=== PATIENT | male | born 1995 | race Caucasian/White ===

== ENCOUNTER 2017-08-06 02:22 | Emergency (ER) | payer OTHER ==
[2017-08-06] MEDS ORDERED: HYDROCODONE/APAP 5/325 TAB ONE (03:09)
[2017-08-06] MEDS ORDERED: HYDROCODONE/APAP 5/325 TAB PO ONE (03:10)
--- NOTE | 2017-08-06 03:18 | EDPHY ---
H & P Stated Complaint: Hemorrhoids Time Seen by Provider: 08/06/17 02:38 HPI/ROS: Chief Complaint: Rectal pain, hemorrhoids HPI: 22-year-old male with a history of hemorrhoids presenting with worsening rectal pain over the last 2 days. He states that he has been having hemorrhoids for several years. Does often have constipation strange when he has a bowel movement. He has never seen a physician for these. He has been using more preparation H last couple of days without any significant relief. No fevers or chills. No nausea or diarrhea. No bleeding. My ROS PMH: Denies Social History: No smoking, no alcohol, no recreational drug use Family History: non-contributory Physical Exam: Gen: Awake, Alert, No Distress HEENT: Nose: no rhinorrhea Eyes: PERRLA, EOMI Mouth: Moist mucosa Neck: Supple, no JVD Chest: nontender, lungs clear to auscultation Heart: S1, S2 normal, no murmur Abd: Soft, non-tender, no guarding Rectal: He has got several external hemorrhoids. In the posterior portion there is swelling which is tense and tender consistent with a thrombosed external hemorrhoid. Back: no CVA tenderness, no midline tenderness Ext: no edema, non-tender Skin: no rash Neuro: CN II-XII intact, Sensation grossly intact, Strength 5/5 in bilateral upper and lower extremities - Personal History Current Tetanus Diphtheria and Acellular Pertussis (TDAP): Yes - Medical/Surgical History Hx Asthma: Yes Hx Chronic Respiratory Disease: No Hx Diabetes: No Hx Cardiac Disease: No Hx Renal Disease: No Hx Cirrhosis: No Hx Alcoholism: No Hx HIV/AIDS: No Hx Splenectomy or Spleen Trauma: No Other PMH: Asthma, cyst removed, 5th metacarpal fixed - Social History Smoking Status: Light smoker Constitutional: Initial Vital Signs Temperature (C) 36.5 C 08/06/17 02:24 Heart Rate 58 L 08/06/17 02:24 Respiratory Rate 18 08/06/17 02:24 Blood Pressure 103/84 H 08/06/17 02:24 O2 Sat (%) 98 08/06/17 02:24 O2 Delivery Mode Room Air Allergies/Adverse Reactions: No Known Allergies Allergy (Verified 08/06/17 02:23) Home Medications: Medication Instructions Recorded Albuterol Inhaler Hfa 05/31/14 Montelukast Sodium [Singulair] 05/31/14 oxyCODONE/APAP 5/325 [Percocet 1 - 2 tab PO Q4H PRN #20 tab 05/31/14 5/325 (RX)] Medical Decision Making Procedures: Procedure: Abscess drainage. The patient's abscess was located on the perirectal area. I obtained verbal consent from the patient to drain the abscess who was informed about the possibility of bleeding and pain. The abscess was incised with 11 blade and a moderate amount of purulent drainage was expressed. I irrigated the wound and placed some packing. The patient tolerated the procedure well. The procedure was performed by myself. ED Course/Re-evaluation: 22-year-old with initial presentation consistent with thrombosed external hemorrhoid. In preparation for drainage it was noted to have purulent discharge expressed. Patient was then prepped and anesthetized and treated with an I and D. On exploration the abscess was not deep. Did not have a large perirectal masses. Patient was given follow-up instructions. He she continue with Sitz baths daily, follow up with primary care. - Data Points Medications Given: Discontinued Medications Hydrocodone Bitart/Acetaminophen ([place] 5/325) 2 tab PO EDNOW ONE Stop: 08/06/17 03:11 Last Admin: 08/06/17 03:11 Dose: 2 tab Departure - Departure Disposition: Home, Routine, Self-Care Clinical Impression: Perirectal abscess Condition: Good Instructions: Abscess Incision and Drainage (DC), Sitz Bath (DC), Constipation (ED) Additional Instructions: You may remove the gauze packing in about 12 hr. Soak in warm soaks sea water 3 times a day. Alternate acetaminophen (1000 mg) with ibuprofen (400 mg) every 4 hours as needed for pain. Follow up with primary care physician in 2-3 days for recheck. Return to the emergency depart for increasing pain, increasing swelling, fevers or chills, or any other concerns. Referrals: Ozzy Sanchez MD [Medical Doctor] - As per Instructions
[2017-08-06 03:45] VITALS: BP 101/44; PULSE 54; RESP 16; TEMP 97.9; O2SAT 94
== END 2017-08-06 03:43 | disposition home or self-care (01) ==
PROC: 0D9P0ZZ Drainage of Rectum, Open Approach (ICD-10-PCS; principal; 2017-08-06)
DX: K61.1 Rectal abscess (principal); F17.200 Nicotine dependence, unspecified, uncomplicated; J45.909 Unspecified asthma, uncomplicated